=== PATIENT | male | born 1955 | race Caucasian/White ===

== ENCOUNTER 2024-01-06 10:37 | Emergency (ER) | payer OTHER, SELFPAY ==
[2024-01-06 11:00] LABS: Hematocrit 40.9 % (39.0-52.0); Hemoglobin 13.2 g/dL (13.0-18.0); Mean Corp Hgb Conc. 32.3 g/dL (33.0-37.0); Mean Corpuscular Hgb 30.9 pg (27.0-31.0); Mean Corpuscular Volume 95.8 fL (80.0-94.0); Mean Platelet Volume 10.8 fL (7.4-10.4); Nucleated Red Blood Cells % 0 % (-); Platelet Count 157 10^3/uL (130-400); Red Blood Cell Count 4.27 10^6/uL (4.70-6.10); Red Cell Dist. Width 13.1 % (11.5-14.5); White Blood Cell Count 10.6 10^3/uL (4.8-10.8)
--- NOTE | 2024-01-06 11:11 | EDRN ---
Refer to Code 9 Record sheets, 3 of them.
[2024-01-06 11:12] LABS: INR 1.87; PT 21.3 Sec (11.4-14.6)
[2024-01-06 11:18] LABS: Glucose - Point of Care 259 mg/dl (70-99)
[2024-01-06 11:31] LABS: Blood Urea Nitrogen 26 mg/dl (9-20); Calcium 10.1 mg/dl (8.4-10.2); Carbon Dioxide 18 mmol/L (22-30); Chloride 104 mmol/L (98-107); Glucose 359 mg/dl (70-99); Sodium 140 mmol/L (135-145); eGFR > 60.00
--- NOTE | 2024-01-06 11:37 | ED.GENMED ---
History of Present Illness
General
Chief Complaint: CODE
Source: family and ambulance crew
Exam Limitations: clinical condition
Time Seen by Provider: 01/06/24 11:35
Nursing documentation reviewed up to this point in time: agreed with
History of Present Illness
History of Present Illness:
Late entry seen immediately upon presentation
68-year-old male cardiac arrest witnessed at home while doing yard work he collapsed did strike his head CPR by ,
EMS promptly arrived resuscitation continued intubated with a Vidal LT V-fib shocked numerous times given amiodarone Rob device placed my evaluation he was in PEA with no pulse in and out of VF VT
Past History
Past History
ED Past Medical History: CAD
ED Past Surgical History: Cardiac
Review of Systems
Review of Systems
Unable to obtain full review of systems at this time due to: intubated
Other source history: ambulance crew
All Other Systems: Not applicable
Phy Exam
Physical Exam
Physical Exam:
Physical Exam
General: Intubated male active CPR
Neck: In c-collar 5 cm laceration over the right temporoparietal region
Heart: No palpable heart rate
Lungs: No spontaneous respirations positive breath sounds with positive pressure
Abdomen: No signs of abdomina trauma
Neuro: 3T, fixed dilated
Skin: no rash
Psychiatric: Unable to assess
Extremities: No peripheral cyanosis
Course
Orders/Labs/Results
Orders:
Orders
01/06/24
Electrocardiogram (*1) Stat
Other Reason for Exam: CP
Comment: DONE
Electrocardiogram (*1) Stat
Reason for Study: Chest Pain
01/06/24 10:45
Electrocardiogram (*1) Urgent
Reason for Study: Chest Pain
Cardiac Monitoring- Treatment ONCE
IV Insert/Care/Rem.- Treatment PRN
05/17/24 10:46
EKG- Treatment ONCE
01/06/24 10:49
Complete Blood Count/With Diff Urgent
Manual Differential Urgent
01/06/24 10:50
Basic Metabolic Panel Urgent
Prothrombin Time Urgent
01/06/24 10:59
Magnesium Sulfate 2 Gram/50 ml [Magnesium Sulfate] 2 gram in 50 ml .ROUTE .STK-MED
01/06/24 11:15
Troponin I Urgent
Abnormal Lab Results
01/06/24 01/06/24 01/06/24
10:49 10:50 11:07
RBC 4.27 L 10^6/uL
(4.70-6.10)
MCV 95.8 H fL
(80.0-94.0)
MCHC 32.3 L g/dL
(33.0-37.0)
MPV 10.8 H fL
(7.4-10.4)
PT 21.3 H Sec
(11.4-14.6)
Carbon Dioxide 18 L mmol/L
(22-30)
BUN 26 H mg/dl
(9-20)
Glucose 359 H mg/dl
(70-99)
POC Glucose 259 H mg/dl
(70-99)
01/06/24 10:49
01/06/24 10:50
Procedures
Intubations
Procedure completed by: Lane
Method of Intubation: glidescope
Tube size (cm): 7.5
Placement confirmed by: auscutation
Breath sounds after intubation: equal
Intubation complications: no complications
*Pulse Oximetry
Patient hypoxic: yes
*EKG
Interpreted by ED Provider?: Yes
Interpretation: abnormal
Comparison EKG: no comparison EKG present
Heart Rate: 78
Rhythm: junctional
Lane: normal axis
Ischemia: non-specific ST changes
*Provider Education Specialist Interpretation
Rate: other
Interpretation: abnormal
Heart Rate: 70
Rhythm: other (vf)
*Critical Care Note
Total Time (30-74mins, 75-104mins- exclusive of procedures): 30
Update Note
Update Note:
Update
Patient presents for cardiac arrest, multiple doses antiarrhythmics epinephrine push and drip, intermittent CPR 7 or 8 defibrillations
Was down for greater than 50 minutes prior to arrival, were carefully another half hour, at the bedside she told me that he would not want to be resuscitated, told her that the chance of you recover neurologically intact nil
patient code called at 1111
Call placed to medical office assistant
Body release, I completed the ED pronouncement and certification portion of the testing for getting the [employer] system
ED Attending Note
-
Portions of this chart may have been created with voice recognition software.� Occasional wrong word or��sound alike� substitutions may have occurred due to the inherent limitations of voice recognition software.
Discharge Plan
Departure
Patient Disposition:
Date of Disposition: 01/06/24
Time of Disposition: 11:44
Patient with high blood pressure during this ER visit?: No
Condition: Critical
Covid-19: Not Applicable
Discharge Problem:
Cardiac arrest
Referrals:
[facility], [Family Provider] -
Interventions
Interventions:
*Nursing Disposition Last Done: 01/06/24 11:11
Discharge Date and Time
Discharge Date/Time: 01/06/24 12:20
Print Language: TAJIK
[2024-01-06 11:43] LABS: Absolute Neutrophils -Man Diff 5.7 10^3/uL (1.4-6.5); Band Neutrophils 3 % (0-3); Lymphocytes 34 % (20-51); Monocytes 2 % (2-9); Segmented Neutrophils 51 % (42-75)
[2024-01-06 11:44] LABS: Atypical Lymphocytes 5 %; Eosinophils 3 % (0-6); Myelocytes 2 % (-); Normal RBC Morphology Yes; Nucleated Red Blood Cells 1 (-); Platelets Checked Yes; Total Cells Counted 100
== END 2024-01-06 12:20 | disposition expired ==
LOC: EMR 10:37
PROVIDERS: EMERGENCY PHYSICIAN Emergency Medicine; FAMILY PHYSICIAN Family Medicine
DX: I46.9 Cardiac arrest, cause unspecified (principal); I25.10 Atherosclerotic heart disease of native coronary artery without angina pectoris; I49.01 Ventricular fibrillation
CPT/HCPCS: 99284; 92950; 80048; 82962; 85025; 85610; 93005